=== PATIENT | male | born 1995 | race Caucasian/White ===

== ENCOUNTER 2021-01-31 18:06 | Emergency (ER) | payer OTHER ==
[2021-01-31] MEDS ORDERED: ALBUTEROL 1 PUFF INH STA (20:22)
--- NOTE | 2021-01-31 20:23 | ED Physician Documentation ---
History of Present Illness - Stated complaint Stated Complaint: COUGH/CONGESTION - Chief complaint Chief Complaint: Resp - Additonal information Additional information: 25-year-old male presents the emergency department for evaluation of a cough that has developed over the last 10 days no fevers or chills. Reports that he has received the appropriate to dose Maduri vaccine in October. No recent travel. States the cough is worse in the morning when he wakes up and especially at night when supine. He is denying chest pain or shortness of air. He is taken [id number] Sudafed as well as Dimetapp without relief of the cough symptom s. Denies a sore throat. Review of Systems Constitutional: denies: Fever, Chills Eyes: reports: Reviewed and negative Ears: reports: Reviewed and negative Nose: reports: Reviewed and negative Throat: reports: Reviewed and negative Cardiac: reports: Reviewed and negative Respiratory: reports: Cough. denies: Dyspnea, Hemoptysis, Wheezing GI: reports: Reviewed and negative : reports: Reviewed and negative Skin: reports: Reviewed and negative Musculoskeletal: reports: Reviewed and negative PD PAST MEDICAL HISTORY - Past Medical History Past Medical History: No - Past Surgical History Past Surgical History: Yes Derm: Skin cancer surgery - Present Medications Home Medications: Ambulatory Orders Medication Instructions Recorded Confirmed Albuterol Sulf [Ventolin Hfa 1 - 2 puffs INH Q4HR PRN #1 inhaler 01/31/21 Inhaler] - Allergies Allergies/Adverse Reactions: Allergies Allergy/AdvReac Type Severity Reaction Status Date / Time No Known Drug Allergies Allergy Verified 01/31/21 18:09 - Social History Does the pt smoke?: No Smoking Status: Former smoker Does the pt drink ETOH?: Yes Does the pt have substance abuse?: No - Immunizations Immunizations are current?: Yes PD ED PE NORMAL - General General: Alert and oriented X 3, No acute distress - HEENT HEENT: PERRL - Neck Neck: Supple, no meningeal sign - Cardiac Cardiac: RRR, No murmur - Respiratory Respiratory: Clear bilaterally, Other (Cough elicited with full deep breath.) - Abdomen Abdomen: Normal bowel sounds, Soft, Non tender, Non distended - Male Male : Deferred - Back Back: No CVA TTP, No spinal TTP Results - Vitals Vitals: Vital Signs - 24 hr 01/31/21 18:09 Temperature 36.5 C Heart Rate 80 Respiratory 16 Rate Blood Pressure 150/70 H O2 Saturation 99 Oxygen O2 Source Room air - Rads (name of study) CXR Radiology: Final report received (no acute cardiopulmonary process) PD MEDICAL DECISION MAKING - ED course Complexity details: reviewed results, re-evaluated patient, d/w patient ED course: This is a well-appearing 25-year-old male that presents to the ER for evaluation of cough for 10 days. No fevers. Some congestion. Chest x-ray is unrevealing. He was not hypoxic but every time he took a deep breath it did cause him to have a coughing fit. I did give this gentleman albuterol with a spacer which markedly improved his symptoms. A Covid screen is pending but at this time I will defer antibiotics as he does not clinically have findings consistent with a pneumonia. Because he got relief with the albuterol I will prescribe that as an outpatient also recommend Benadryl at night because postnasal drip is likely contributing to some of the symptoms. Emergent return precautions were discussed for worsening symptoms. Departure - Departure Disposition: 01 Home, Self Care Clinical Impression: Cough Upper respiratory infection Qualifiers: URI type: unspecified viral URI Qualified Code(s): J06.9 - Acute upper respiratory infection, unspecified Condition: Stable Record reviewed to determine appropriate education?: Yes Instructions: ED Viral Syndrome Prescriptions: Albuterol Sulf [Ventolin Hfa Inhaler] 1 - 2 puffs INH Q4HR PRN #1 inhaler PRN Reason: Shortness Of Air/Wheezing Comments: You were seen in the ER today for a cough that has persisted for about 10 days. Your chest x-ray is normal and does not show pneumonia. I suspect that you likely have seasonal allergies or virus causing the cough. I would like you to use the albuterol that I prescribed with a spacer 4-6 times a day. He would also benefit from using some Benadryl at night which can help with postnasal drip and dry up the congestion that is likely contributing to your symptoms. You have a Covid test pending. You need to self quarantine until the result is done and negative. Do not leave your house. Do not get near anybody. The results should be done in 48 to 72 hours. We will call with a positive result, the fastest way to get a negative result for confirmation though is to go to the hospital website at [email or web address], click on the my [facility] tab and sign up for the patient portal. If any friends or family get sick and would like to have a Covid test done, but do not have signs or symptoms that would necessitate being hospitalized, we encourage testing through our coronavirus swabbing station, call [phone] to schedule an appointment. If your symptoms are not improving, your cough worsens, you develop chest pain or shortness of air or you have any fevers then please return immediately to the ER for a second evaluation.
--- NOTE | 2021-01-31 20:45 | XRAY Report ---
PROCEDURE: Chest 1 View X-Ray INDICATIONS: chest pain TECHNIQUE: One view of the chest was acquired. COMPARISON: None. FINDINGS: Surgical changes and devices: None. Lungs and pleura: No pleural effusions or pneumothorax. Left costophrenic angle has been excluded. L ungs are otherwise clear. Mediastinum: Mediastinal contours appear normal. Heart size is normal. Bones and chest wall: No suspicious bony lesions. Overlying soft tissues appear unremarkable. IMPRESSION: Chest without acute cardiopulmonary abnormalities. Of note, the left costophrenic angle was excluded off the [id number]. Reviewed by: Charli Heredia MD on 01/31/2021 8:44 PM PDT Approved by: Charli Heredia MD on 01/31/2021 8:44 PM PDT Station ID: [id number]
[2021-01-31 21:29] VITALS: BP 138/61
== END 2021-01-31 21:28 | disposition home or self-care (01) ==
LOC: ED 18:06
DX: J06.9 Acute upper respiratory infection, unspecified (principal); B97.89 Other viral agents as the cause of diseases classified elsewhere; R05 Cough; Z20.822 Contact with and (suspected) exposure to COVID-19; Z87.891 Personal history of nicotine dependence
CPT/HCPCS: 94640; 99284

== ENCOUNTER 2022-05-14 10:35 | Outpatient (CLI) | payer OTHER ==
[~2022-05-14 10:35] MED LIST: BUPIVACAINE 0.5% PF 10 ML VIAL ONE; ROPIVACAINE 0.5% PF 20 ML AMPULE ONE; TRIAMCINOLONE 40 MG/ML VIAL ONE
[2022-05-14] MEDS ORDERED: BUPIVACAINE 0.5% PF 10 ML VIAL IM ONE (11:58)
[2022-05-14] MEDS ORDERED: TRIAMCINOLONE 40 MG/ML VIAL IM ONE (11:59)
[2022-05-14] MEDS ORDERED: ROPIVACAINE 0.5% PF 20 ML AMPULE IU ONE ×2 (12:00)
--- NOTE | 2022-05-14 12:07 | Ultrasound Report ---
PROCEDURE: Injection Single Tendon INDICATIONS: PAIN IN LEFT SHOULDER TECHNIQUE: The indications, alternatives, benefits, risks, and complications of the procedure were explained to the patient. Written informed consent was obtained and placed in the chart. The patient was placed in an appropriate position on the fluoroscopy table, and a site was chosen for percutaneous access un markus ultrasound guidance. Local anesthetic was administered using a 1% lidocaine solution. A hypoder cliff or spinal needle was then used to access the symptomatic joint. Intra-articular location of the needle tip was confirmed by real time ultrasound imaging, followed by steroid administration. The ne edle was then withdrawn, and a bandage applied to the puncture site. FINDINGS: Joint injected: Left biceps tendon Medications injected: 1 mL of 40 mg/mL Kenalog and 0.5% Ropivacaine mixture. Complications: None. IMPRESSION: Successful ultrasound guided administration of steroid and anaesthetic solution into the left biceps tendon sheath. Reviewed by: Clement Marley on 05/14/2022 12:05 PM PDT Approved by: Clement Marley on 05/14/2022 12:05 PM PDT Station ID: [id number]
== END 2022-05-14 10:36 | disposition home or self-care (01) ==
LOC: DI 10:35
PROVIDERS: ATTEND Orthopaedic Surgery
DX: M25.512 Pain in left shoulder (principal)
CPT/HCPCS: 20550

== ENCOUNTER 2022-08-02 12:42 | Outpatient (CLI) | payer OTHER ==
[2022-08-02 13:37] VITALS: BP 114/70
--- NOTE | 2022-08-02 13:37 | SLEEP CARE CONSULTATION ---
Information from patient questionnaire entered by tSella Peres. I have reviewed and concur with the information entered by Stella Peres. This document represents the service I personally performed and the decisions made by me, Janette Hussein ARNP. History of Present Illness Service Date and Time: 08/02/2022 1242 Reason for Visit: New patient, sleep apnea on CPAP therapy Chief Complaint: reports: Unrefreshed sleep, Snoring, Excessive daytime sleepiness, Fatigue, Other (UPDATE SUPPLIES) Date of Onset: SINCE 2014 Usual bedtime: 9PM-10PM Time it takes to fall asleep: USUALLY NOT LONG Snores at night: Yes Observed to quit breathing while asleep: No Sleeps alone due to snoring: No Number of times waking at night: 1-2 Reasons for waking at night: reports: Snoring, Other (DOGS) Toss, Turn, or Twitch while sleeping: Yes Recalls having dreams: Yes Usually gets out of bed at: 5-6AM Feels refreshed in the morning: No Morning headache: No Sleepy or fatigued during the day: Yes Ever fallen asleep while driving: No Takes day naps: Yes Dreams during day naps: Yes Prior sleep studies: Yes Year and Where: [address] [facility] Additional HPI information: JOHANNA NUNES was previously diagnosed to have mild, AHI 13.3, obstructive sleep apnea-hypopnea syndrome and comes in today to establish care for CPAP therapy. - Parasomnia Symptoms Ever been unable to move upon waking from sleep: No Walks in sleep: No Talks in sleep: Yes Ever acted out dreams in sleep: No Ever felt weak in the knees when startled or emotional: No Bothered by creepy, crawly, restless sensations in legs: No Problems with memory or concentration: Yes CPAP Compliance Data - Data Reviewed with Patient Average duration of nightly device use: 6 hours 39 minutes Compliance rate %: 82 (79/90 days used; 05/04/22-08/01/22) Current pressure setting (cmH2O): 7-14 Average residual AHI: 0.5 Central apnea: 0.1 Obstructive apnea: 0.2 Average large leak: 3.4 LPM Compliance data discussion: He has a ResMed Airsense 10 that was set up in 08/21/2016. He is using a ResMed Airfit F20 full face mask. He was previously getting supplies from [employer] but does not currently. He is in need of supplies. Subjective Missed days of use due to: reports: mask issues (dog chewed on his mask, leaking), other (will fall asleep without it) Patient concerns: reports: air blowing in eyes, mask leak noise, other (skin dryness with flaking, uses lotion and resolves). denies: aerophagia, mask discomfort, condensation in mask/hose, nasal congestion, dry mouth, nose, throat, epistaxis Observed to snore while using device: No Current pressure setting perceived as: comfortable On therapy, patient: reports: sleeping better, awakening more refreshed, being more awake and alert during the day, more rested overall. denies: drowsiness while driving Initial [place] Sleepiness Scale score: 11 (08/01/22) Past Medical History Past Medical History: reports: Other (LEFT SHOULDER SURGERY Aug LEFT EAR ISSUE APPOINTMENT IN SEPTEMBER ) Social History The patient's occupation is a AM. Patient is and lives in [place]. Have you smoked in the past 12 months: No Alcohol use: Yes Alcohol amount and frequency: 1-2 DRINKS EVERY OTHER WEEKEND Caffeine use: Yes Caffeine amount and frequency: 1-2 CUPS DAILY Family History Family history of sleep disordered breathing: No Allergies and Home Medications Known drug allergies: No Drug allergies reviewed: Yes (NKDA) Home medication list reviewed: Yes (no daily medications) Review of Systems Cardiovascular: denies: high blood pressure Gastrointestinal: denies: heartburn Neurological: reports: headaches Psychiatric: denies: Attention Deficit Hyperactivity, anxiety, depression, mood disorder Ear/Nose/Throat: reports: wisdom teeth removed. denies: tonsillectomy Musculoskeletal: reports: joint pain, neck pain Physical Exam Vital signs obtained and entered by: STELLA Evans MA Blood Pressure: 114/70 (LEFT ARM) Cuff size: regular (LEFT ARM) Heart Rate: 62 O2 Saturation: 96 Height: 6 ft 4 in Weight: 284 lb 12.8 oz Body Mass Index: 34.7 BMI Classification: Obese Neck circumference: 18 Impression and Plan 1. Obstructive Sleep Apnea-Hypopnea Syndrome, mild, with good treatment compliance and good apnea control. On CPAP therapy, the patient has better sleep quality and is more rested overall. Patient has gotten supplies from [employer] but has not been able for about a year because he needs an updated prescription. His current supplies are down and he only has one broken headgear for his mask. He last updated his CPAP in 2017. The patients CPAP is over 5 years old and of reasonable use. Thus, the CPAP will be updated. A DWO prescription will be made. Compliance guidelines for new device and follow up discussed. Patient's apnea severity and rationale for treatment to reduce apnea, improve sleep quality and reduce cardiovascular and cerebrovascular events was reviewed. I had [place], [employer], bring in a replacement F20 full face mask for him to use until he gets new machine and supplies. He helped him fit it. He stated that it fit fine. The sample mask was sent home with him. * Continue auto CPAP pressure at 7-14 cmH2O * Update machine * Update supplies * Notify me if snoring with mask or feeling that the pressure is too much or too little * Attempt to lose weight * Call this office if any problems using CPAP * Return for follow up one month after obtaining new device, or sooner if concerns arise Mask provided: Yes Counseling Topics: Spare mask, Weight loss health impact Visit Type: In Office Time Spent with Patient (minutes): 36 Provider Statement: I spent 100% of the Face to Face Visit with the patient with greater than 50% spent counseling the patient and coordination of care.
== END 2022-08-02 12:43 | disposition home or self-care (01) ==
LOC: SC 12:42
PROVIDERS: ATTEND Nurse Practitioner Family
DX: G47.33 Obstructive sleep apnea (adult) (pediatric) (principal); E66.9 Obesity, unspecified; Z68.34 Body mass index [BMI] 34.0-34.9, adult
CPT/HCPCS: 99203; 99212